=== PATIENT | female | born 1985 | race Caucasian/White ===

== ENCOUNTER 2017-10-08 10:15 | Inpatient (IN) | payer OTHER ==
[~2017-10-08] VITALS: Ht 162.6 cm; Wt 84.0 kg
[~2017-10-08 10:15] MED LIST: LEVO1IUD2 INT UTER
[2017-10-08] MEDS ORDERED: PRENTAB26 PO (11:18)
[2017-10-08 11:24] VITALS: Ht 162.6 cm; Wt 84.0 kg
--- NOTE | 2017-10-08 11:32 | Progress Note ---
Progress Note Date of Service Oct 08, 2017. Progress Note Admit Note 32 F P1001 at 39 weeks with SROM clear fluid at 7;30 AM today. GBS is negative. Cervix is 2/50/-3. clear fluid noted. FHT Cat 1. Will ambulate and admit in early labor.
[2017-10-08 12:01] LABS: HEMATOCRIT 36.5 % (37-47); HEMOGLOBIN 12.7 g/dL (12.0-16.0); MEAN CELL VOLUME 85.1 fL (80-100); MEAN CORPUSCULAR HEMOGLOBIN 29.6 pg (25-34); MEAN CORPUSCULAR HGB CONC 34.8 g/dl (32-36); PLATELET COUNT 186 K/uL (130-400); RED CELL DISTRIBUTION WIDTH CV 14.7 % (11.5-14.5); RED CELL DISTRIBUTION WIDTH SD 45.2 fL (36.4-46.3)
[2017-10-08] MEDS ORDERED: LACTATED RINGER'S 1000ML 500 ML IV PRN ×2 (14:53→20:47)
[2017-10-08] MEDS ORDERED: OXYTOCIN 30 UNITS/500ML NSS IV PRN (15:00)
[2017-10-08] MEDS: LACTATED RINGER'S 1000ML 1,000 ML IV SCH ×2 (15:47→23:45)
[2017-10-08] MEDS ORDERED: BUPIVACAINE 0.25% 30 ML VIAL ONE ×2 (20:43→23:01)
[2017-10-08] MEDS ORDERED: FENTANYL CITRATE INJ 50 MCG/1 ML 2 ML VIAL ONE ×2 (20:44→23:01)
[2017-10-08] MEDS ORDERED: EpHEDrine SULFATE INJ 50 MG/ML AMP ONE (20:44)
[2017-10-08] MEDS ORDERED: FENTANYL 2MCG/ML ROPIV 1.25MG/ML 100ML BAG EPI ONE (20:45)
[2017-10-08] MEDS ORDERED: NALOXONE HCL INJ 1 MG in SODIUM CHLORIDE 0.9% 1000ML 1,000 ML IV PRN (20:47)
[2017-10-08] MEDS ORDERED: EpHEDrine SULFATE INJ 50 MG/ML AMP IV PRN (21:00)
[2017-10-08] MEDS ORDERED: DiphenhydrAMINE HCL 50 MG/ML VIAL IV PRN (21:00)
[2017-10-08] MEDS ORDERED: FENTANYL 2MCG/ML ROPIV 1.25MG/ML 100ML BAG EPI PRN (21:00)
[2017-10-08] MEDS ORDERED: NALBUPHINE HCL INJ 10 MG/ML AMP IV PRN (21:00)
[2017-10-08] MEDS ORDERED: ONDANSETRON INJ 2 MG/ML 2 ML VIAL IV PRN (21:00)
[2017-10-08] MEDS ORDERED: NALOXONE HCL INJ 0.4 MG/1 ML VIAL/CARP IV PRN (21:00)
[2017-10-09] MEDS ORDERED: LACTATED RINGER'S 1000ML 1,000 ML IV SCH (00:37)
--- NOTE | 2017-10-09 00:41 | Vaginal Delivery Summary ---
Vaginal Delivery Summary Delivery Note live female over intact perineum LAYA with Apgars 9/10 weight pending. Delayed cord clamping followed by cord blood collection. Placenta delivered spontaneously with apparent accessory lobe noted. No tears. EBL 250 ml. Final sponge and instrument count are correct. Mom and baby stable.
[2017-10-09] MEDS ORDERED: HYDROCORTISONE ACETATE 25 MG SUPP PR PRN (00:45)
[2017-10-09] MEDS ORDERED: DIPHTHERIA/TETANUS/PERTUSSIS 0.5 ML SYR/VIAL IM. ONE (00:45)
[2017-10-09] MEDS ORDERED: BENZOCAINE 20% AER SPR 82.5 GM CAN EXT PRN (00:45)
[2017-10-09] MEDS ORDERED: ACETAMINOPHEN 325 MG TAB PO PRN (00:45)
[2017-10-09] MEDS ORDERED: SUPERCREAM 0.870 % 15GM JAR EXT PRN (00:45)
[2017-10-09] MEDS ORDERED: MEASLES, MUMPS & RUBELLA VIRUS VIAL SQ. ONE (00:45)
[2017-10-09] MEDS: OXYTOCIN 30 UNITS/500ML NSS IV PRN ×2 (02:07→04:12)
[2017-10-09] MEDS ORDERED: MISOPROSTOL 200 MCG TAB ONE (04:06)
[2017-10-09 05:10] VITALS: BP 135/81; PULSE 87; TEMP 37.1; O2SAT 99
[2017-10-09] MEDS: DOCUSATE SODIUM 100 MG CAP PO SCH ×2 (08:30→19:30)
[2017-10-09] MEDS: PRENATAL VITAMIN TAB PO SCH (08:30)
[2017-10-09] MEDS: FERROUS SULFATE 325 MG TAB PO SCH (08:31)
[2017-10-09 08:35] VITALS: BP 128/74; PULSE 89; TEMP 36.9; O2SAT 98
--- NOTE | 2017-10-09 09:18 | OB/GYN Progress Note ---
SKI TECHNICIAN Progress Note Date of Service Oct 09, 2017. Subjective conversation w/ patient, physical exam Voiding: no voiding problems Diet Tolerance: Regular Diet Lochia: Moderate Feeding Type: Breast Feeding Review of Systems Constitutional: No fever, No chills, No sweats, No weight loss, No weakness, No fatigue, No problem reported Respiratory: No cough, No sputum, No wheezing, No shortness of breath, No dyspnea on exertion, No dyspnea at rest, No hemoptysis, No problem reported Cardiac: No chest pain, No orthopnea, No PND, No edema, No claudication, No palpitations, No problem reported Breast: No see HPI, No breast lump, No change in shape, No nipple discharge, No breast pain, No problem reported Abdomen: No pain, No nausea, No vomiting, No diarrhea, No constipation, No GI bleeding, No problem reported Female : No see HPI, No dysuria, No urinary frequency, No hematuria, No incontinence, No abnormal vaginal bleeding, No vaginal discharge, No problem reported Objective Vital Signs Date Time Temp Pulse Resp B/P (MAP) Pulse Ox O2 Delivery O2 Flow Rate FiO2 10/09/17 05:10 37.1 87 18 135/81 (99) 99 Room Air 10/09/17 05:10 99 Room Air Physical Exam General Appearance: WELL-APPEARING, WD/WN, NO APPARENT DISTRESS Respiratory/Chest: chest non-tender, lungs clear, normal breath sounds Cardiovascular: regular rate, rhythm, no edema, no gallop Abdomen: normal bowel sounds, non tender, soft Fundus: Firm Extremities: normal range of motion, non-tender, normal inspection Laboratory Results Last 24 Hours Test 10/08/17 11:49 White Blood Count 11.70 K/uL Red Blood Count 4.29 M/uL Hemoglobin 12.7 g/dL Hematocrit 36.5 % Mean Corpuscular Volume 85.1 fL Mean Corpuscular Hemoglobin 29.6 pg Mean Corpuscular Hemoglobin Concent 34.8 g/dl RDW Standard Deviation 45.2 fL RDW Coefficient of Variation 14.7 % Platelet Count 186 K/uL Mean Platelet Volume 10.0 fL Assessment and Plan Day Number: 1 Continue Routine Care: PPD #1 pt doing well anticipate dish tomorrow
--- NOTE | 2017-10-09 09:33 | Anesthesia Procedure Note ---
Anesthesia Epidural Removal Nt Date & Time Oct 09, 2017 at 09:33 Vital Signs Pain Intensity: 0.0 Vital Signs Past 12 Hours Date Time Temp Pulse Resp B/P (MAP) Pulse Ox O2 Delivery O2 Flow Rate FiO2 10/09/17 05:10 37.1 87 18 135/81 (99) 99 Room Air 10/09/17 05:10 99 Room Air Notes Mental Status: alert / awake / arousable, participated in evaluation Nausea / Vomiting: adequately controlled Pain: adequately controlled Airway Patency, RR, SpO2: stable & adequate BP & HR: stable & adequate Hydration State: stable & adequate Neuraxial Anesthesia: was administered Anesthetic Complications: no major complications apparent, pt satisfied with anesthetic care Epidural: removed without complications, with tip intact
[2017-10-09] MEDS: IBUPROFEN 600 MG TAB PO PRN (12:37)
[2017-10-09 13:09] VITALS: BP 108/66; PULSE 89; TEMP 36.7; O2SAT 96
[2017-10-09 16:00] VITALS: BP 111/77; PULSE 85; TEMP 36.6
[2017-10-09 23:30] VITALS: BP 139/88; PULSE 97; TEMP 37.2
[2017-10-10 03:40] VITALS: BP 124/78; PULSE 86; TEMP 37.2
[2017-10-10 07:30] VITALS: BP 116/81; PULSE 92; TEMP 36.8
[2017-10-10] MEDS: FERROUS SULFATE 325 MG TAB PO SCH (07:36)
[2017-10-10] MEDS: DOCUSATE SODIUM 100 MG CAP PO SCH (07:36)
[2017-10-10] MEDS: PRENATAL VITAMIN TAB PO SCH (07:36)
[2017-10-10] MEDS: IBUPROFEN 600 MG TAB PO PRN (07:36)
[2017-10-10 08:03] LABS: HEMATOCRIT 30.7 % (37-47)
[2017-10-10] MEDS ORDERED: MTR600X PO (11:01)
--- NOTE | 2017-10-10 11:03 | Discharge Instructions ---
Discharge Instructions Date of Service Oct 10, 2017. Admission Reason for Admission: R/O Labor Discharge Discharge Diagnosis / Problem: term delivered Discharge Goals Goal(s): Routine recovery after delivery Activity Recommendations Activity Limitations: as noted below Lifting Limitations: no more than 10 pounds Exercise/Sports Limitations: gradually increase as tolerated Shower/Bathe: no limitations Driving or Machine Use: resume 3 days after discharge . Instructions / Follow-Up Instructions / Follow-Up ACTIVITY RECOMMENDATIONS: * Gradual return to full activity over the next 2-3 weeks. * No lifting - nothing heavier than baby over the next 2-3 weeks. * Do not engage in vigorous exercise, sexual activity or sports until cleared by your physician. * Do not drive or operate any motorized equipment until cleared by your physician. * You may shower/bathe daily. BREAST CARE: If you are not breast feeding: * Wear a supportive bra 24 hours a day for one to two weeks. * Avoid stimulating your breasts and nipples as much as possible during the first few weeks after delivery. * When taking a shower, have the warm water hit your back, not breasts. * When your breasts feel full, apply ice packs. Usually three to four times a day helps ease the discomfort. * Take a mild pain medication (Tylenol/Motrin) when you are uncomfortable. If breast feeding: * Use breast milk to lubricate nipples. Lansinoh cream may be used for sore nipples. You do not need to remove cream prior to breast feeding. If using a different brand of cream, check the label for directions regarding removal of cream prior to nursing. * Wear a supportive bra. * If having problems with breasts or breast feeding, call a systems development consultant or your health care provider. EPISIOTOMY CARE: After delivery, if you have an episiotomy (stitches), the following steps will ease discomfort and aid healing. * For the first 24 hours after delivery, place ice packs next to your episiotomy to help reduce swelling. * After the first 24 hour-period, sitz baths, either portable or in the tub, are suggested. A shower with a shower arm sprayed over the episiotomy may be comforting. * Lita care should be done after each voiding and bowel movement. Squirt warm water from a plastic bottle over the perineum (region of the body between the anus and urinary opening) and pat dry. * Use Dermoplast to ease discomfort. Shake container. [place] directly over the episiotomy. * Place a Tucks on a clean sanitary pad next to your episiotomy. OVER THE COUNTER MEDICATION: * For discomfort or pain, you may use Acetaminophen (Tylenol), Ibuprofen (Advil ), or Naproxen (Aleve) following the package directions. * For constipation you may use Colace following the package directions. SPECIAL CARE INSTRUCTIONS: When you are discharged from the hospital, it is important for you to follow the instructions listed below: * During the first week at home, you should be able to care for yourself and your baby. In addition, the usual light household activities are encouraged. * Limit your activities to the way you feel. Do not try to clean the house or move furniture. Be sensible. * If you actively engage in sports and have done so up until the time of your delivery, you may resume these activities as soon as you feel able. This may take up to one month or even longer. Use good judgment. * Continue to take your vitamins for at least six weeks after the of your baby. * Your diet need not be limited unless you were on a special diet before your delivery. Breast-feeding mothers need around 2500 calories per day and at least 64-80 ounces of fluid per day (8 to 10 glasses). * You should eat foods from the four major food groups. Crash diets or fad diets are to be avoided. Eating lean meats, fresh fruits and vegetables, low-fat dairy products, high fiber foods and a regular exercise program, will help you get back to your pre- weight without putting your health at risk. * Constipation is sometimes a problem after delivery. Take a mild laxative as needed. If breast feeding, Milk of Magnesia is acceptable to use. You may use a suppository or Fleets enema if no episiotomy. * A daily shower or tub bath is suggested. Be sure to thoroughly and gently dry the perineum. * A bloody vaginal discharge will usually continue until around four weeks post . A small amount of bleeding may continue for as long as six weeks. Vaginal discharge changes from the bright red bleeding after delivery to pink then brownish and finally yellowish-pink before becoming white and disappearing. * Bleeding may increase with activity. Your first period may come in 4-8 weeks. If you are breast feeding, your period may be delayed even longer. * [place] (sex) can begin whenever both you and your partner feel comfortable and do not have any form of genital infection. It is recommended that you wait until after your return appointment and discuss with your physician. If you have questions, please talk to your health care practitioner. A condom should be used to prevent infection and . * Foreplay, gentle intercourse and lubrication is very important the first several times to prevent pain. A water-based lubricant such as K-Y jelly or Astroglide may be used. * Tampons may be used six weeks after delivery. * Douching should be avoided for 6 weeks after delivery. * If you have RH negative blood and your baby is RH positive, you will receive RHOGAM by injection prior to discharge. The nurse will give you a card to keep with you that has the date and place that you received RHOGAM after delivery. * During your care, you had a Rubella screen done to check for the presence of rubella antibodies in your blood. If your test was negative, you will receive a Rubella vaccine prior to discharge. This vaccine may cause a fever, soreness at the injection site and flu-like symptoms. If these symptoms persist, notify your health care practitioner. is not advised for three months after a Rubella vaccine. There is a higher chance of having a baby with defects if conceived within three months of getting the vaccine. * If you were discharged 24 hours from delivery or before 48 hours: Visiting nurses will come to your home 48 hours after discharge to assess you and your baby. The visiting nurse will meet with you while you are in the hospital to arrange a time and get directions to your home. * Verbalizes understanding of car seat law as reviewed with patient nursing. * Car Seat hand-out given and reviewed with patient by nursing. * Shaken baby information reviewed with patient by nursing. Call you doctor if: * Heavy bleeding (saturating several pads an hour) or passing clots the size of your fist. * A fever >101 degrees F (38.3 degrees C) on two occasions four hours apart and/or chills. * Unusual pain in the pelvic or vaginal areas. * "Baby Blues" lasting longer than two weeks. If you have any questions or concerns, call your health care practitioner at . FOLLOW-UP VISIT: * Please call the office at to schedule a 6 week examination. It is important you keep this appointment. * It is important for you to make arrangements for either yearly or twice yearly check-ups thereafter. Current Hospital Diet Patient's current hospital diet: Regular OB Diet Discharge Diet Recommended Diet: Regular OB Diet Fluid Restriction: None Pending Studies Studies pending at discharge: no Medical Emergencies . Who to Call and When: Medical Emergencies: If at any time you feel your situation is an emergency, please call 911 immediately. . Non-Emergent Contact Non-Emergency issues call your: Primary Care Provider . . "Provider Documentation" section prepared by Rubin Griffin. . VTE Core Measure Inpt VTE Proph given/why not?: Treatment not indicated
--- NOTE | 2017-10-10 11:19 | OB/GYN Progress Note ---
TRANSCRIPTION COORDINATOR Progress Note Date of Service Oct 10, 2017. Subjective conversation w/ patient, physical exam Ambulation: ambulating normally Voiding: no voiding problems Passing Gas: Yes Diet Tolerance: Regular Diet Lochia: Small Feeding Type: Bottle Feeding Objective Vital Signs Date Time Temp Pulse Resp B/P (MAP) Pulse Ox O2 Delivery O2 Flow Rate FiO2 10/10/17 07:30 36.8 92 16 116/81 (93) Room Air 10/10/17 07:30 Room Air 10/10/17 03:40 37.2 86 16 124/78 (93) Room Air 10/09/17 23:30 Room Air 10/09/17 23:30 37.2 97 18 139/88 (105) Room Air 10/09/17 20:30 Room Air 10/09/17 16:00 36.6 85 16 111/77 (88) Room Air 10/09/17 16:00 Room Air 10/09/17 13:09 36.7 89 20 108/66 (80) 96 Room Air Physical Exam General Appearance: WELL-APPEARING, NO APPARENT DISTRESS Abdomen: non tender Fundus: Firm Extremities: non-tender, normal inspection, no pedal edema, no calf tenderness Laboratory Results Last 24 Hours Test 10/10/17 07:25 Hemoglobin 10.0 g/dL Hematocrit 30.7 % Assessment and Plan Day Number: 2 Continue Routine Care: discharged
[2017-10-10 12:00] VITALS: BP_DIAS 81; PULSE 92; TEMP 36.8
[2017-10-10] MEDS ORDERED: BISACODYL 5 MG TABEC PO SCH (20:00)
[2017-10-11] MEDS ORDERED: BISACODYL 10 MG SUPP PR PRN (07:00)
== END 2017-10-10 12:00 | disposition home or self-care (01) | DRG 775 ==
LOC: C.LD 10:15 → C.OPB 10:15 → C.LD 10:28 → C.OPB 11:29 → C.OBG 10-09 05:01
PROVIDERS: ADMIT Obstetrics & Gynecology; ATTEND Obstetrics & Gynecology
PROC: 10E0XZZ Delivery of Products of Conception, External Approach (ICD-10-PCS; principal; 2017-10-08)
DX: O80 Encounter for full-term uncomplicated delivery (principal); Z3A.39 39 weeks gestation of pregnancy; Z37.0 Single live birth

== ENCOUNTER 2017-10-30 08:52 | Observation (INO) | payer OTHER ==
--- NOTE | 2017-10-29 13:45 | HISTORY & PHYSICAL EXAMINATION ---
DATE OF ADMISSION: 10/30/2017 The patient is going for surgery tomorrow morning. HISTORY OF PRESENT ILLNESS: The patient is a 32-year-old female para 2-0-0-2, who is , delivered on 10/08/2017, has noticed some passage of clots and feeling slightly feverish. The patient was seen in the office. She had a temperature of 101. No bleeding or abdominal pain. She had an uncomplicated vaginal delivery on 10/08/2017. PAST MEDICAL HISTORY: Significant for abnormal cervical dysplasia in 2009. MEDICATIONS: None. ALLERGIES: AMOXICILLIN, CEPHALOSPORINS, ERYTHROMYCIN AND PENICILLINS. SOCIAL HISTORY: The patient is single. She is a former smoker. Denies alcohol or drug use. PHYSICAL EXAMINATION: VITAL SIGNS: BP 100/60, temperature 100.6. GENERAL: She is alert and oriented. LUNGS: Clear to auscultation. COR: Regular rate and rhythm. ABDOMEN: Soft, nontender, no rebound or guarding. PELVIC: Reveals no evidence of any cervical motion tenderness, no bleeding. Uterus is not enlarged or tender. ASSESSMENT: Retained placenta. PLAN: D&E in the OR with ultrasound guidance.
[2017-10-30] VITALS (7 sets, daily range): BP systolic 96–128; BP diastolic 57–75; PULSE 93–114; TEMP 36.9–37.5; O2SAT 96–99; Ht 165.1 cm; Wt 69.0 kg
[~2017-10-30] VITALS: Ht 165.1 cm; Wt 69.0 kg
--- NOTE | 2017-10-30 07:35 | History & Physical Bridge Note ---
H&P Re-Evaluation Bridge Note: I have examined the patient, reviewed the History & Physical and in the interval since the performance of the History & Physical I have noted the following changes of clinical significance: No changes noted
[~2017-10-30 08:52] MED LIST changes: +CIPROFLOXACIN / D5W 400 MG IV SCH; +CLINDAMYCIN 600 MG/54 ML D5W 50 ML IV SCH; +LACTATED RINGER'S 1000ML 1,000 ML IV SCH; -LEVO1IUD2 INT UTER; +MTR600X PO; +PRENTAB26 PO
[2017-10-30] MEDS ORDERED: FENTANYL CITRATE INJ 50 MCG/1 ML 2 ML VIAL ONE (08:55)
[2017-10-30] MEDS ORDERED: LIDOCAINE HCL 2% 2 ML VIAL (20MG/ML) ONE (08:55)
[2017-10-30] MEDS ORDERED: PROPOFOL IV EMULSION 10 MG/ML 20 ML VIAL IV ONE (08:55)
[2017-10-30] MEDS ORDERED: MIDAZOLAM HCL 1 MG/ML 2ML VIAL ONE (08:55)
[2017-10-30] MEDS ORDERED: DEXAMETHASONE SOD INJ 4 MG/ML VIAL ONE (09:14)
[2017-10-30] MEDS ORDERED: ONDANSETRON INJ 2 MG/ML 2 ML VIAL ONE (09:14)
[2017-10-30] MEDS ORDERED: EpHEDrine SULFATE INJ 50 MG/ML AMP IV PRN (09:15)
[2017-10-30] MEDS ORDERED: FENTANYL CITRATE INJ 50 MCG/1 ML 2 ML VIAL IV PRN (09:15)
[2017-10-30] MEDS ORDERED: PROMETHAZINE HCL INJ 6.25 MG in SODIUM CHLORIDE 0.9% 50ML 50 ML IV PRN (09:15)
[2017-10-30] MEDS ORDERED: ONDANSETRON INJ 2 MG/ML 2 ML VIAL IV PRN ×2 (09:15→10:15)
[2017-10-30] MEDS ORDERED: ATROPINE SULFATE 0.1 MG/ML 5ML SYR IV PRN (09:15)
[2017-10-30] MEDS ORDERED: SILVER NITR/POTASSIUM NITRATE APPLICATOR ONE (09:16)
[2017-10-30] MEDS ORDERED: KETOROLAC TROMETHAMINE 30 MG/ML VIAL ONE (10:03)
[2017-10-30] MEDS ORDERED: OXYTOCIN INJ 10 UNITS/ML VIAL ONE (10:03)
--- NOTE | 2017-10-30 10:14 | [facility] Post Operative Brief Note ---
Immediate Operative Summary Operative Date Oct 30, 2017. Pre-Operative Diagnosis Retained Placenta Post-Operative Diagnosis Retained Placenta Procedure(s) Performed Dilation and Evacuation with Ultrasound Guidance Surgeon Dr. Rubin Griffin Manager Psychology Surgeon(s) None Estimated Blood Loss 25ML Findings Consistent with Post-Op Diagnosis Fluids (cc crystalloids) LR 1000 ml. Specimens Permanent Solution: A.) Retained Placenta Drains None Anesthesia Type General Complication(s) none Disposition Accompanied Pt To Recover: yes Disposition: Recovery Room / PACU
[2017-10-30] MEDS ORDERED: IBUPROFEN 600 MG TAB PO PRN (10:15)
[2017-10-30] MEDS ORDERED: MoRPHine SULFATE 2 MG/ML CARP IV PRN (10:15)
[2017-10-30] MEDS ORDERED: KETOROLAC TROMETHAMINE 30 MG/ML VIAL IV. PRN (10:15)
[2017-10-30] MEDS ORDERED: MoRPHine SULFATE 4 MG/ML 1 ML CARP\\VIAL IV PRN (10:15)
--- NOTE | 2017-10-30 10:57 | DIAGNOSTIC IMAGING REPORT ---
Study: Intraoperative assistance ultrasonically. HISTORY: Retained products of conception FINDINGS:. Study is performed as intraoperative guidance/assistance for appears to be a DNC procedure. The senior mechanical estimator reports the possibility of a postprocedural collection measuring 1.7 x 1.0 cm in the left fundal region of the capsular margin of the uterus. Per history the possibility of a localized perforation is considered. IMPRESSION:. Intraoperative assistance for a D&C procedure. Possible local perforation left uterine fundal region. Electronically signed by: Darion Zhu M.D. 10/30/2017 10:56 AM Dictated Date/Time: 10/30/2017 10:54 AM
[2017-10-30] MEDS ORDERED: IV FLUIDS COMPLETED PRN (11:00)
--- NOTE | 2017-10-30 11:16 | Anesthesiology Progress Note ---
Anesthesia Post Op Note Date & Time Oct 30, 2017 at 11:16 Vital Signs Pain Intensity: 0 Vital Signs Past 12 Hours Date Time Temp Pulse Resp B/P (MAP) Pulse Ox O2 Delivery O2 Flow Rate FiO2 10/30/17 11:11 86 21 97 10/30/17 11:11 84 21 10/30/17 11:10 101/67 10/30/17 11:06 86 15 97 10/30/17 11:06 85 15 10/30/17 11:05 98/64 10/30/17 11:01 90 16 10/30/17 11:01 91 16 96 10/30/17 11:00 97/61 10/30/17 10:57 87 15 96 10/30/17 10:57 87 15 10/30/17 10:55 97/58 10/30/17 10:55 36.2 10/30/17 10:52 93 16 10/30/17 10:52 93 16 96 10/30/17 10:51 93 15 10/30/17 10:51 92 15 96 10/30/17 10:50 102/58 10/30/17 10:46 96 15 96 10/30/17 10:46 96 15 10/30/17 10:45 98/61 10/30/17 10:41 91 18 96 10/30/17 10:41 90 18 10/30/17 10:40 99/59 10/30/17 10:36 89 17 99 10/30/17 10:36 89 17 10/30/17 10:35 94/60 10/30/17 10:31 92 16 100 10/30/17 10:31 92 16 10/30/17 10:30 104/58 10/30/17 10:26 100 18 99 10/30/17 10:26 96 18 10/30/17 10:25 101/56 10/30/17 10:21 95 13 96/57 99 10/30/17 10:21 36.6 98 14 96/57 99 Oxymask 10 10/30/17 10:21 95 13 10/30/17 09:11 37.2 112 16 110/63 (79) 96 Room Air Notes Mental Status: alert / awake / arousable, participated in evaluation Pt Amnestic to Procedure: Yes Nausea / Vomiting: adequately controlled Pain: adequately controlled Airway Patency, RR, SpO2: stable & adequate BP & HR: stable & adequate Hydration State: stable & adequate Anesthetic Complications: no major complications apparent
[2017-10-30] MEDS ORDERED: SODIUM CHLORIDE 0.9% 1000ML 1,000 ML IV SCH (11:45)
--- NOTE | 2017-10-30 14:12 | OPERATIVE REPORT ---
DATE OF OPERATION: 10/30/2017 PREOPERATIVE DIAGNOSIS: Retained placenta. POSTOPERATIVE DIAGNOSIS: Retained placenta. PROCEDURE PERFORMED: D&E under ultrasound guidance. SURGEON: Dr. Griffin. PROJECT SCIENTIST: None. ESTIMATED BLOOD LOSS: 25 mL. FINDINGS: Consist of old necrotic retained placenta. FLUIDS: LR 1000 mL. SPECIMEN RETAINED: Placenta. DRAINS: None. ANESTHESIA: General. COMPLICATIONS: None. CLINICAL HISTORY: The patient is a 32-year-old female para 2-0-0-2, , delivered to 10/08/2017, noted some passage of some clots, feeling slightly feverish in the outpatient setting at home this week. The patient was seen in the office, she had a temperature of 101. No bleeding or abdominal pain was noted. Ultrasound revealed retained placenta, and she was set up for a D&E. DESCRIPTION OF PROCEDURE: After satisfactory general anesthesia, the patient was prepped and draped in usual sterile fashion. Catheter was used to empty the bladder of clear urine. Exam under anesthesia revealed the uterus to be approximately 12 weeks' size. There was no active bleeding. A weighted speculum was placed in the posterior vault of vagina. A long Allis was placed on the anterior lip of the cervix. Uterus was sounded to approximately 12 cm. The cervix was then dilated with Hegar dilators and under direct visualization from ultrasound, a large amount of tissue was obtained with suctioning, under direct ultrasound guidance. Pitocin was started in the IV. After completing the procedure, it was noted that there was a small area on the left hand side of the fundus of the uterus, reporting a small fluid collection of 1.7 x 1 cm in the capsular margin of the uterus. This was possibly related to possible perforation. The patient's vital signs were stable and hemodynamically she was stable and there was no bleeding. The patient will be observed as an observation today and a repeat ultrasound will be done later for evaluation. All remaining instruments were then removed. The specimen was submitted to pathology for examination. Total EBL 25 mL. The final sponge and instrument count were found to be correct. The patient was then placed supine on a stretcher and taken to recovery room in stable condition. I attest to the content of the Intraoperative Record and any orders documented therein. Any exception s are noted below.
--- NOTE | 2017-10-30 14:35 | DIAGNOSTIC IMAGING REPORT ---
EXAMINATION: PELVIC ULTRASOUND CLINICAL HISTORY: Post D&C. POSSIBLE UTERINE PERFORATION. COMPARISON STUDY: Earlier in the day FINDINGS: The uterus measured 10.4 x 7.6 x 9.6 cm. In dimension stripe measured 12 mm. There is a hyperechoic tract extending through the left myometrium, and suspicious for a focal perforation. No periuterine fluid collections are visualized. The right ovary measures 19 x 14 x 15 mm. The left ovary measures 22 x 14 x 14 mm. There is no free fluid. IMPRESSION: Hyperechoic tract extending through the left myometrium, suspicious for a focal uterine perforation. No periuterine fluid collections are visualized Electronically signed by: Golden Salas M.D. 10/30/2017 2:34 PM Dictated Date/Time: 10/30/2017 2:29 PM
[2017-10-30] MEDS ORDERED: DOXY100C2 PO (15:00)
--- NOTE | 2017-10-30 15:02 | Discharge Instructions ---
Discharge Instructions Date of Service Oct 30, 2017. Admission Reason for Admission: Retained Products Of Conception Discharge Discharge Diagnosis / Problem: retained placental products Discharge Goals Goal(s): Routine recovery after surgery Activity Recommendations Activity Limitations: per Instructions/Follow-up section Lifting Limitations: no more than 10 pounds Exercise/Sports Limitations: none, as tolerated May Resume Sexual Activity: after follow-up appointment Shower/Bathe: no limitations Driving or Machine Use: resume 1 day after discharge . Instructions / Follow-Up Instructions / Follow-Up ACTIVITY RECOMMENDATIONS: * Avoid tampons, douching, hot tubs, pools, and intercourse until bleeding has stopped. * May shower as usual. * No strenuous activity for 24-48 hours. After 24-48 hours, you may do anything you feel like doing (driving and sports are okay). SPECIAL CARE INSTRUCTIONS: Special Diet: * Mild nausea may occur in the immediate post-operative period. * Take clear liquids such as tea, cola or bouillon until all nausea has subsided; you may then resume your normal diet. Special Care: * Light bleeding and vaginal spotting can last from a few days to 3-4 weeks. Call your doctor if bleeding becomes heavier than the heaviest part of your period. * Check your temperature twice a day for one week. If it goes above 100.4 degrees Fahrenheit (38.0 Celsius), notify your doctor. * Call your doctor's office for an appointment for 6 weeks after your surgery. FOLLOW-UP VISIT: Call your doctor's office for an appointment for 6 weeks after your surgery. Current Hospital Diet Patient's current hospital diet: Regular Diet Discharge Diet Recommended Diet: Regular OB Diet Procedures Procedures Performed: Dilation and Evacuation with Ultrasound Guidance Pending Studies Studies pending at discharge: no Medical Emergencies . Who to Call and When: Medical Emergencies: If at any time you feel your situation is an emergency, please call 911 immediately. . Non-Emergent Contact Non-Emergency issues call your: Primary Care Provider . . "Provider Documentation" section prepared by Rubin Griffin. .
--- NOTE | 2017-10-30 15:04 | Progress Note ---
Progress Note Date of Service Oct 30, 2017. Progress Note patient seen and examined. No abdominal pain on exam with no vaginal bleeding. I reviewed ultrasound with radiologist and no fluid in cul-de-sac. Will send home and follw up in 1 week in office, Will Start Vibramycin 100 mg PO BID for 7 days. Patient to call if any changes.
== END 2017-10-30 15:25 | disposition home or self-care (01) ==
LOC: C.ACU 08:52 → C.MS4N 10:48 → ENRESERV 11:00
PROVIDERS: ADMIT Obstetrics & Gynecology; ATTEND Obstetrics & Gynecology
DX: O73.0 Retained placenta without hemorrhage (principal); Z88.0 Allergy status to penicillin; Z88.1 Allergy status to other antibiotic agents; Z87.891 Personal history of nicotine dependence

== ENCOUNTER 2020-10-03 07:52 | Inpatient (IN) ==
--- NOTE | 2020-10-03 08:05 | History & Physical Report ---
Date of Service October 03, 2020 Assessment & Plan (1) Post term over 40 weeks: Admit. IV. Labs. EFM/toco. COVID rapid test. Admission and Anticipated Discharge Date Admission Date: October 03, 2020 History of Present Illness Chief Complaint: IOL Primary Care Provider: Darion Garrison MD 35yo @ 37 12/30, IOL complications/plans: AMA Allergies Allergy/AdvReac Type Severity Reaction Status Date / Time Cephalosporins Allergy Intermediate Swelling Verified 10/02/20 19:14 and itching erythromycin base Allergy Unknown Unknown Verified 10/02/20 19:14 penicillin G Allergy Unknown [place] Verified 10/02/20 19:14 REACTION amoxicillin Allergy pt doesnt Verified 10/02/20 19:14 remember reaction Home Medications Medication Instructions Recorded Confirmed Type prenat.vits,sandi,[id number] 1 tab PO DAILY 08/13/19 10/02/20 History Patient History Medical History (Updated 10/02/20 @ 19:56 by Vanesa Ferguson MD, FACOG) Abnormal biochemical finding on screening of mother Advanced maternal age (AMA) in Encounter for anatomic survey Encounter for removal of sutures Hand laceration Hx of abnormal cervical Pap smear Hx of varicella Missed Postoperative observation Supervision of normal intrauterine in multigravida Work related injury Surgical History H/O colposcopy with cervical biopsy H/O dilation and curettage [place] teeth removed Family History Grandmother (Paternal) Heart disease Father Myocardial infarction Grandfather Prostate cancer Mother Thyroid disease Sister Thyroid disease Social History Smoking Status: Never smoker Hx Alcohol Use: No Hx Substance Use: No Preferred Language: Vietnamese marital status: Single marital status details: Dio Ellis (35) [phone] Current Living Situation: Family and Significant Other Current Living Situation Comment: lives with FOB and children, 1 dog current occupational status: employed current occupation: Staff Trainer- [employer] Feels Safe at Home: Yes Results & Data ([facility]) Vital Signs (Past 12 Hours) Vital Signs Pulse BP 10/03/20 07:59 91 H 132/84 Monitoring External Monitor FHT Cat 1 Esto occ Coding Level of Care Code None Diagnoses Post term over 40 weeks O48.0
[2020-10-03] MEDS ORDERED: OXYTOCIN 30 UNITS/500 ML BAG IV PRN ×3 (08:06→19:51)
[2020-10-03 08:21] LABS: Hematocrit (blood only) 37.1 % (37-47); Hemoglobin 12.2 g/dL (12.0-16.0); Mean Corpuscular Hemoglobin 27.5 pg (25-34); Mean Corpuscular Hgb Conc 32.9 g/dL (32-36); Mean Corpuscular Volume 83.6 fL (80-100); Mean Platelet Volume 10.9 fL (7.4-10.4); Platelet Count 179 K/uL (130-400); RDW Coefficient of Variation 14.7 % (11.5-14.5); RDW Standard Deviation 44.9 fL (36.4-46.3); Red Blood Count 4.44 M/uL (4.2-5.4)
[2020-10-03] MEDS: LACTATED RINGER'S 1,000 ML IV PRN ×3 (09:04→19:06)
--- NOTE | 2020-10-03 13:57 | Labor Progress Brief Note ---
Date of Service October 03, 2020 Subjective Comfortable. Does not yet desire epidural. FHT Cat 1 [place] Q 2 SVE 5/80/-2 AROM clear fluid. Anticipate . Assessment & Plan Admission and Anticipated Discharge Date Admission Date: October 03, 2020 Results & Data ([facility]) Vital Signs (Past 12 Hours) Vital Signs Temp Pulse Resp BP 10/03/20 13:47 36.8 C 78 18 120/81 10/03/20 12:24 18 10/03/20 12:10 18 10/03/20 11:40 18 10/03/20 11:16 37.0 C 85 18 119/73 10/03/20 11:10 18 10/03/20 10:47 18 10/03/20 10:40 18 10/03/20 10:16 78 18 131/78 10/03/20 10:10 18 10/03/20 09:45 18 10/03/20 09:13 84 122/79 10/03/20 09:11 18 10/03/20 09:10 18 10/03/20 07:59 91 H 132/84 10/03/20 07:56 36.5 C 18 Coding Level of Care Code None
[2020-10-03] MEDS ORDERED: SODIUM CHLORIDE 0.9% INJ 10 ML VIAL ONE (14:02)
[2020-10-03] MEDS ORDERED: BUPIVACAINE 0.25% 30 ML VIAL ONE (14:02)
[2020-10-03] MEDS ORDERED: fentaNYL 2MCG/ML ROPIVACAINE 1.25MG/ML 100 ML BAG EPI ONE (14:02)
[2020-10-03] MEDS ORDERED: ePHEDrine sulfate 50 MG/ML AMP ONE (14:02)
[2020-10-03] MEDS ORDERED: fentaNYL citrate 100 MCG/2 ML VIAL ONE (14:02)
[2020-10-03] MEDS ORDERED: diphenhydrAMINE 50 MG/ML VIAL IV PRN (14:27)
[2020-10-03] MEDS ORDERED: ePHEDrine sulfate 50 MG/ML AMP IV PRN (14:27)
[2020-10-03] MEDS ORDERED: fentaNYL 2MCG/ML ROPIVACAINE 1.25MG/ML 100 ML BAG EPI PRN (14:27)
[2020-10-03] MEDS ORDERED: ONDANSETRON INJ 2 MG/ML 2 ML VIAL IV PRN (14:27)
[2020-10-03] MEDS ORDERED: NALOXONE HCL 1 MG in SODIUM CHLORIDE 0.9% 1000ML 1,000 ML IV PRN (14:27)
[2020-10-03] MEDS ORDERED: NALOXONE HCL 0.4 MG/1 ML VIAL/CARP IV PRN (14:27)
--- NOTE | 2020-10-03 14:30 | Anesthesiology Consultation ---
Date of Service October 03, 2020 Covid 19 negative today. Assessment & Plan Chart Review Chart Review: Patient NOT seen in Pre Admission Testing and Acceptable Risk for Labor Epidural Consults Requested none ASA ASA2 Proposed Anesthesia Anesthesia Type: Labor Epidural and CSE Risk / Benefits Reviewed With: PT / POA / Parent / Guardian, Accepts Plan and Informed Consent Obtained History Height/Weight Height: 5 ft 5 in Weight: 86.364 kg Allergies Allergy/AdvReac Type Severity Reaction Status Date / Time Cephalosporins Allergy Intermediate Swelling Verified 10/03/20 08:48 and itching erythromycin base Allergy Unknown Unknown Verified 10/03/20 08:48 penicillin G Allergy Unknown [place] Verified 10/03/20 08:48 REACTION amoxicillin Allergy pt doesnt Verified 10/03/20 08:48 remember reaction Medications Home Medications Medication Instructions Recorded Confirmed Last Taken prenat.vits,sandi,[id number]-[id number]-[id number] 1 tab PO DAILY 08/13/19 10/03/20 10/02/20 08:00 Active Medications Generic Name Dose Route Start Last Admin Trade Name Freq PRN Reason Stop Dose Admin Oxytocin 30 units in 500 mls @ 13 mls/hr 10/03/20 08:06 10/03/20 12:24 Pitocin IV 10/05/20 08:05 0.78 units/hr .Q24H PRN 13 mls/hr Labor Induction/Augmentation Titration Protocol 0.78 UNITS/HR Lactated Ringer's 1,000 mls @ 125 mls/hr 10/03/20 08:06 10/03/20 13:56 Lr IV 10/05/20 08:05 999 mls/hr .Q8H PRN Infusion L&D Protocol Protocol NPO Date Last Intake of Fluids: 10/03/20 Time Last Intake of Fluids: 13:00 Date Last Intake of Solids: 10/03/20 Time Last Intake of Solids: 07:00 Past Medical History Medical History Abnormal biochemical finding on screening of mother Advanced maternal age (AMA) in Encounter for anatomic survey Encounter for removal of sutures Hand laceration Hx of abnormal cervical Pap smear Hx of varicella Missed Postoperative observation Supervision of normal intrauterine in multigravida Work related injury Exercise / Class Metabolic Activity II 4-5 Yardwork/Stairs/Walk up hill Past Family History Family History Grandmother (Paternal) Heart disease Father Myocardial infarction Grandfather Prostate cancer Mother Thyroid disease Sister Thyroid disease Past Surgical History Surgical History H/O colposcopy with cervical biopsy H/O dilation and curettage [place] teeth removed Past Anesthesia History No Hx of Anesthesia Complications and No Family Hx of Anesthesia Complications History of PONV No Hx of PONV and No Hx of Motion Sickness Social History Smoking Status: Never smoker Hx Alcohol Use: No Hx Substance Use: No Review of Systems no chest pain or sob Physical Exam Vital Signs Last Vital Signs Temp 36.8 C 10/03/20 13:47 Pulse 95 H 10/03/20 14:27 Resp 18 10/03/20 13:47 BP 164/70 H 10/03/20 14:26 Pulse Ox 98 10/03/20 14:27 ENMT Mouth: no TMJ abnormality Thyromental Distance: > or= 3.5 Finger Breadths Mallampati Class: II Neck normal visual inspection Respiratory normal respiratory effort Auscultation: lungs clear to auscultation bilaterally Cardiovascular Rate/Rhythm: regular rate and regular rhythm Musculoskeletal Spine: normal cervical ROM Neurologic moves all extremities Psychiatric Orientation: alert and oriented x 3 Testing Laboratory Results 10/03/20 08:12
[2020-10-03] MEDS ORDERED: DIPHTHERIA/TETANUS/PERTUSSIS 0.5 ML SYR/VIAL IM ONE (19:51)
[2020-10-03] MEDS ORDERED: HYDROCORTISONE ACETATE 25 MG SUPP PR PRN (19:51)
[2020-10-03] MEDS ORDERED: oxyCODONE/ACETAMINOPHEN 5mg/325mg TAB PO PRN (19:51)
[2020-10-03] MEDS ORDERED: ACETAMINOPHEN 325 MG TAB PO PRN (19:51)
[2020-10-03] MEDS ORDERED: BENZOCAINE 20% AER SPR 82.5 GM CAN EXT PRN (19:51)
[2020-10-03] MEDS ORDERED: SUPERCREAM 0.870% 15 GM JAR EXT PRN (19:51)
[2020-10-03] MEDS ORDERED: bisacodyL 10 MG SUPP PR PRN (19:51)
--- NOTE | 2020-10-03 20:00 | Anesthesia Procedure Note ---
Date of Service October 03, 2020 Anesthesia Post Epidural Note Vital Signs Vital Signs: Temp Pulse Resp BP Pulse Ox 37.3 C 89 20 118/64 88 L 10/03/20 19:05 10/03/20 19:55 10/03/20 19:55 10/03/20 19:55 10/03/20 19:40 Pain Intensity Abdomen: Pain Intensity: 0 Notes Mental Status: alert / awake / arousable and participated in evaluation Nausea / Vomiting: adequately controlled Pain: adequately controlled Airway Patency, RR, SpO2: stable & adequate BP & HR: stable & adequate Hydration State: stable & adequate Neuraxial Anesthesia: was administered and sensory block is resolving Anesthetic Complications: no major complications apparent and Pt Satisfied with anesthetic care Epidural: Removed without complications and With tip intact
--- NOTE | 2020-10-03 20:24 | Delivery Summary ---
Vaginal Delivery Summary Date of Service October 03, 2020 Vaginal Delivery Summary [facility] Vaginal Delivery Summary: Pre-delivery diagnoses: 35yo @ 37 /, eIOL, AMA Post-delivery diagnoses: same Procedure: spontaneous vaginal delivery Surgeon: Marcie Celaya DO Complications: none Findings: Viable female . Apgars: 8/9. Weight pending, please see nursery records. Estimated blood loss: 300ml Description of delivery: The patient progressed to complete with epidural anesthesia. She then began to push. She spontaneously vaginally delivered a viable from the cephalic presentation. The head delivered in LAYA position. The anterior shoulder delivered, followed by the posterior shoulder, followed by the body. The baby was placed on mother's abdomen and a spontaneous cry was heard. Delayed cord clamping was employed, and the cord was doubly clamped and cut. Cord blood was obtained. The placenta was delivered spontaneously intact with a 3-vessel cord. The uterus and vagina were swept of clots and debris. IV pitocin was given. The uterus became firm. The cervix, vagina, and perineum were inspected and no lacerations were noted. Excellent hemostasis was observed. The mother and baby are recovering in stable and good condition in the room. Sponge and instrument counts were correct x 2. Marcie Celaya DO [facility] Vaginal Delivery Charge Vaginal Delivery Codes: 33051 global code for the antepartum, delivery, and post- Delivery Type Details: [facility]
[2020-10-03] MEDS: IBUPROFEN 600 MG TAB PO PRN (21:09)
[2020-10-03] MEDS: DOCUSATE SODIUM 100 MG CAP PO SCH (21:10)
[2020-10-04] MEDS: IBUPROFEN 600 MG TAB PO PRN ×2 (02:53→10:46)
[2020-10-04 06:28] LABS: Hematocrit (blood only) 35.2 % (37-47); Hemoglobin 11.6 g/dL (12.0-16.0)
[2020-10-04] MEDS ORDERED: PRENATAL VITAMIN 1 TAB PO SCH (08:00)
--- NOTE | 2020-10-04 08:17 | Obstetrical Progress Note ---
Date of Service October 04, 2020 Assessment & Plan (1) Supervision of elderly multigravida, antepartum: PPD#1 doing well. Would like to go home today. Instructions reviewed, followup 6wPP. Subjective Ambulation: ambulating normally Voiding: no voiding problems Diet Tolerance:: regular diet Lochia:: Moderate Review of Systems All systems reviewed & are unremarkable except as noted in HPI & below Physical Exam Constitutional WD/WN, vitals as above no acute distress Respiratory normal respiratory effort Cardiovascular Rate/Rhythm: regular rate and regular rhythm Gastrointestinal (Abdomen) Inspection/Auscultation: abdomen normal to inspection; abdomen not distended Percussion/Palpation: abdomen soft Genitourinary OB Exam Abdomen: + fundal height Fundus: + firm; not tender Results & Data ([facility]) Vital Signs (Past 12 Hours) Vital Signs Temp Pulse Pulse Resp BP BP Pulse Ox 10/04/20 07:53 36.6 C 81 18 117/81 97 10/04/20 03:59 36.7 C 73 18 110/71 97 10/04/20 00:15 36.6 C 87 18 122/75 96 10/03/20 22:15 36.6 C 93 H 18 130/78 96 10/03/20 21:55 84 119/72 10/03/20 21:40 82 20 113/66 10/03/20 21:25 88 120/66 10/03/20 21:10 92 H 20 119/66 10/03/20 20:55 89 127/69 10/03/20 20:40 89 20 127/69 10/03/20 20:25 85 20 124/74
[2020-10-04] MEDS: DOCUSATE SODIUM 100 MG CAP PO SCH (08:29)
[2020-10-04] MEDS ORDERED: bisacodyL 5 MG TABEC PO SCH (20:00)
== END 2020-10-04 20:25 | disposition home or self-care (01) | DRG 807 ==
LOC: 4S1 07:52 → 4S2 22:36